=== PATIENT | female | born 1940 | race Caucasian/White ===

== ENCOUNTER 2019-06-19 10:40 | Inpatient (IN) ==
[2019-06-14 16:29] LABS: Appearance,Urine CLEAR; Bilirubin,Urine NEG (NEG); Color,Urine YELLOW; Culture Indicated,Urine NO; Glucose,Urine (UA) NEGATIVE (NEG); Ketones,Urine NEG (NEG); Leukocyte Esterase,Urine NEG /uL (NEG); Nitrate,Urine NEG (NEG); Protein,Urine NEG (NEG); Specific Gravity,Urine 1.009 (1.000-1.035); Urine Blood NEG mg/dL (<0.03); Urobilinogen,Urine NEG (NEG)
[2019-06-14 17:06] LABS: Basophils # (Auto) 0 K/mcL (0.0-0.3); Basophils % (Auto) 0.5 % (0.0-2.0); Eosinophils # (Auto) 0.3 K/mcL (0.0-0.7); Eosinophils % (Auto) 3.7 % (0.0-7.0); Granulocytes % (Auto) 64.8 % (38.0-78.0); Hemoglobin 14.4 g/dL (12.0-15.0); Lymphocytes % (Auto) 24.8 % (15.5-49.0); Mean Cell Volume 90.8 fL (80.0-100.0); Mean Corpuscular HGB Conc 32.7 g/dL (31.0-36.0); Mean Platelet Volume 7.6 fL (7.4-10.4); Monocytes # (Auto) 0.5 K/mcL (0.1-0.9); Monocytes % (Auto) 6.2 % (1.0-12.0); Platelet Count 303 K/mcL (140-440); RBC 4.84 M/mcL (4.00-5.20); Red Cell Distribution Width 13.1 % (11.5-14.5); WBC 7.9 K/mcL (4.5-11.0)
[2019-06-14 17:17] LABS: INR 0.9 (0.9-1.1); Prothrombin Time 12.1 sec (11.9-14.5)
[2019-06-14 17:18] LABS: Blood Urea Nitrogen 11 mg/dl (8-23); Carbon Dioxide 28 mmol/L (22-30); Chloride 98 mmol/L (96-108); Glomerular Filtration Rate 82; Glucose 90 mg/dL (70-105)
[~2019-06-19 10:40] MED LIST: 0.9 % SODIUM CHLORIDE 9 ML, KETOROLAC 30 MG, ROPIVACAINE HCL/PF 49.5 ML, EPINEPHrine 0.... IJ SCH; IPRATROPIUM/ALBUTEROL 3 ML AMPUL.NEB NEB PRN; PREGABALIN 75 MG CAPSULE PO SCH; SCOPOLAMINE 1 PATCH PATCH TOPICAL PRN; ceFAZolin 2 GM in DEXTROSE 5% IN WATER 50 ML IV SCH; oxyCODONE 10 MG TAB.ER.12H PO SCH
[2019-06-19] MEDS: CELECOXIB 200 MG CAPSULE PO SCH (11:09)
[2019-06-19] MEDS ORDERED: LIDOCAINE HCL/PF 100 MG/5 ML SYRINGE IV ONE (16:18)
[2019-06-19] MEDS ORDERED: DEXAMETHASONE 10 MG/ML VIAL IV ONE (16:18)
[2019-06-19] MEDS ORDERED: GLYCOPYRROLATE 0.2 MG/ML VIAL IV ONE (16:18)
[2019-06-19] MEDS ORDERED: ONDANSETRON 4 MG/2 ML VIAL IV ONE (16:18)
[2019-06-19] MEDS ORDERED: KETAMINE 100 MG/ML ML IV ONE (16:18)
[2019-06-19] MEDS ORDERED: PROPOFOL 200 MG/20 ML VIAL IV ONE (16:18)
[2019-06-19] MEDS ORDERED: MIDAZOLAM 2 MG/2 ML VIAL IV ONE (16:18)
[2019-06-19] MEDS ORDERED: ROPIVACAINE HCL/PF 30 ML VIAL IJ ONE (16:18)
[2019-06-19] MEDS ORDERED: TRANEXAMIC ACID 1,000 MG/10 ML VIAL IV ONE ×2 (16:18→17:39)
[2019-06-19] MEDS ORDERED: MAGNESIUM HYDROXIDE 30 ML ORAL.SUSP PO PRN (17:39)
[2019-06-19] MEDS ORDERED: BISACODYL 10 MG SUPP.RECT PR PRN (17:39)
[2019-06-19] MEDS ORDERED: BENZOCAINE/MENTHOL 1 LOZENGE PO PRN ×2 (17:39→17:42)
[2019-06-19] MEDS ORDERED: ONDANSETRON 4 MG ODT TABLET SL PRN (17:39)
[2019-06-19] MEDS ORDERED: FLEETS ADULT ENEMA PR PRN (17:39)
[2019-06-19] MEDS ORDERED: HYDROcodone/APAP 10/325MG TABLET PO PRN (17:39)
[2019-06-19] MEDS ORDERED: ONDANSETRON 4 MG/2 ML VIAL IV PRN ×2 (17:39→17:42)
[2019-06-19] MEDS ORDERED: POLYETHYLENE GLYCOL 3350 17 GM PACKET PO PRN (17:39)
[2019-06-19] MEDS ORDERED: METHOCARBAMOL 750 MG TABLET PO PRN (17:39)
--- NOTE | 2019-06-19 17:39 | Brief Operative Note ---
Date of procedure: 06/19/19 Pre-op diagnosis: right knee oa Post-op diagnosis: same Procedure: right total knee arthroplasty Grafts/Implants: Yes Anesthesia: spinal Complications: none Surgeon: Mal Newton Pre Press Manager: Daria Day Estimated blood loss (cc): 100 Tourniquet Time (Minutes): 47 Specimens Removed/Pathology: none sent Condition: stable Disposition: PACU
[2019-06-19] MEDS ORDERED: ACETAMINOPHEN 1,000 MG/100 ML BOTTLE IV ONE (17:42)
[2019-06-19] MEDS ORDERED: IPRATROPIUM/ALBUTEROL 3 ML AMPUL.NEB NEB PRN (17:42)
[2019-06-19] MEDS ORDERED: MEPERIDINE 25 MG/ML SYRINGE IV PRN (17:42)
[2019-06-19] MEDS ORDERED: METHOCARBAMOL 1,000 MG/10 ML VIAL IV PRN (17:42)
[2019-06-19] MEDS ORDERED: fentaNYL 100 MCG/2 ML VIAL IV PRN (17:42)
[2019-06-19] MEDS ORDERED: GENTAMICIN SULFATE 800 MG/20 ML VIAL IR ONE (17:46)
--- NOTE | 2019-06-19 18:45 | XRay Report ---
CLINICAL INFORMATION: Post-Op Total Knee COMPARISON: None. FINDINGS: Total knee prostheses is anatomically aligned. No osseous abnormality. Periarticular soft tissue swelling seen as expected IMPRESSION: Negative Interpreted and Authenticated by: Mal Walters 06/19/19
[2019-06-19] MEDS: KETOROLAC 15 MG/ML VIAL IV SCH (19:20)
[2019-06-19] MEDS: LACTATED RINGERS 1,000 ML IV SCH (19:39)
[2019-06-19] MEDS ORDERED: SENNOSIDES 1 TABLET PO SCH (21:00)
[2019-06-19] MEDS ORDERED: amLODIPine 5 MG TABLET PO SCH (21:00)
[2019-06-19] MEDS: ASPIRIN 81 MG TAB.CHEW PO SCH (21:13)
[2019-06-19] MEDS: DOCUSATE SODIUM 100 MG CAPSULE PO SCH (21:14)
[2019-06-19] MEDS: 0.9 % SODIUM CHLORIDE 10 ML SYRINGE IV SCH (21:14)
[2019-06-19] MEDS ORDERED: ceFAZolin 1 GM VIAL ONE (23:48)
[2019-06-20] MEDS: KETOROLAC 15 MG/ML VIAL IV SCH ×3 (01:55→12:21)
[2019-06-20] MEDS: ceFAZolin 1 GM VIAL IV SCH ×2 (01:55→07:57)
[2019-06-20] MEDS: LACTATED RINGERS 1,000 ML IV SCH ×2 (02:21→16:16)
[2019-06-20] MEDS: 0.9 % SODIUM CHLORIDE 10 ML SYRINGE IV SCH ×2 (05:23→12:21)
[2019-06-20 06:17] LABS: Hematocrit 37.9 % (36.0-48.0); Hemoglobin 12.7 g/dL (12.0-15.0)
--- NOTE | 2019-06-20 07:04 | Discharge Summary ---
Providers - Providers Patient information: Note initiated : 06/20/19 at 7:01 am Service Date, if different from initiated Date: [] Patient: Vika Khan 78 y/o F admitted on 06/19/19 for Right Total Knee Arthroplasty. Chief Complaint: [POD #1 s/p right TKA Patient reports minimal to no pain. Has not yet ambulated as surgery was quite late. Denies CP, SOB, numbness/tingling or calf pain.] Discharge date: 06/20/19 Hospitalization Hospital Course: Patient was brought to OR yesterday for right TKA. Surgery went on without complications. Was admitted overnight for posteroperative care and pain management. Will discharge home today and follow up in the clinic for post op care. Discharge diagnosis: knee osteoarthritis Reason for admission: post op pain management Exam - Exam Incision healing: Yes Incision draining: No Incision red: No Incision swollen: No Incision inflamed: No Clean and dry: Yes Weight bearing status: as tolerated Range of motion: full ankle and foot Ortho Discharge - TKA - Patient Instructions Diet: Regular Diet Activity: ambulate with assistive device Total Knee Protocol: For Total Knee: Start ROM SHAMAR with stationary bike or rocking chair. Work on gaining full extension of knee. Posterior dislocation precautions provided. Hip abductor strengthening and gait training instructions provided. Apply Cryocuff as instructed. Dressing Care: Other (Leave barros dressing in place until post op. It is shower proof. Pat and air dry when done. If barros dressing starts to fall off before post op appointment, there's a glue patch underneath the skin that is also shower proof. Keep that in place until post op appointment. Recommend BENEDICTO wrap daily until post op appointment for swelling control) - Follow Up Plan Follow Up Appointments: Daria Day PA-C [Physician Office Cashier] - 07/04/19 10:20 am Disposition: Home, Self-Care Prognosis: Good Rehab Potential: Good I certify that the patient requires SNF services: No Overall status at discharge: patient is progressing back to baseline - Orders For Discharge Prescriptions: Aspirin 81 mg PO BID #28 tab.chew Transmission Status: Pending to [facility] HYDROcodone/APAP 10/325MG [[place] 10-325Mg] 1 - 2 tab PO Q4HP PRN #60 tab PRN Reason: Pain Level 3-6 Prescription Printed Additional Discharge Orders: Physical Therapy at Discharge - TKA Location: None Selected Toilet Riser Discharge Order Location: None Selected Pending Studies Resuscitation Status Full Code Diet Regular Diet Start TueJun 19 1741 Amlodipine Besylate (Norvasc) 5 mg PO [facility] Last Admin: 06/19/19 21:14 Dose: 5 mg Documented by: YULIA Aspirin (Aspirin) 81 mg PO BID [facility] Last Admin: 06/19/19 21:13 Dose: 81 mg Documented by: YULIA Cefazolin Sodium (Ancef) 2 gm IV Q8H [facility] Stop: 06/20/19 08:01 Last Admin: 06/20/19 01:55 Dose: Not Given Documented by: YULIA Docusate Sodium (Colace) 100 mg PO BID [facility] Last Admin: 06/19/19 21:14 Dose: 100 mg Documented by: YULIA Lactated Ringer's (Lactated Ringers) 1,000 mls @ 125 mls/hr IV .Q8H [facility] Last Admin: 06/20/19 02:21 Dose: 125 mls/hr Documented by: Admin: 06/19/19 19:39 Dose: Not Given Documented by: YULIA Ketorolac Tromethamine (Toradol) 15 mg IV Q6 [facility] Stop: 06/21/19 12:01 Last Admin: 06/20/19 05:37 Dose: 15 mg Documented by: Admin: 06/20/19 01:55 Dose: Not Given Documented by: Admin: 06/19/19 19:20 Dose: 15 mg Documented by: YULIA Senna (Senokot) 2 tab PO [facility] Last Admin: 06/19/19 21:14 Dose: 2 tab Documented by: YULIA Sodium Chloride (Saline Flush) 10 ml IV Q8 [facility] Last Admin: 06/20/19 05:23 Dose: Not Given Documented by: Admin: 06/19/19 21:14 Dose: 10 ml Documented by: YULIA Shift Summary 06/20/19 03:20 Shift Summary by Matilda Sue Pt arrived room 106 via gurney approx 1900. Pt reported sensation returning to leg upon arrival to room. Pt treated with toradol for pain times 1 as of this writing. Pt taking PO well without nausea or concern. Pt with 20 IV to left wrist with LR at 125 mL per hour. Pt with bilateral foot pumps functioning without concern. Pt reports history of urinary incontinence during previous hospitalizations, Pt without incont, but is wearing an attends for comfort and confidence. Pt A & O times 4 and skin is without issues. incision to right knee secured with wide BENEDICTO wrap from ankle to thigh. Pt's VSS. Initialized on 06/20/19 03:20 - END OF NOTE
--- NOTE | 2019-06-20 07:08 | Operative Note ---
DATE OF OPERATION: 06/19/2019 PREOPERATIVE DIAGNOSIS: Degenerative joint disease, right knee. POSTOPERATIVE DIAGNOSIS: Degenerative joint disease, right knee. PROCEDURE: Right total knee arthroplasty. SURGEON: Diamante Newton M.D. ALARM INSTALLATION TECHNICIAN SURGEON: Daria Day PA-C. This provider's expertise and technical skill were required throughout the case. The PA assisted with preoperative coordination, intraoperative retraction, wound closure, dressing and splint application, as well as postoperative documentation and care coordination. ANESTHESIA: Spinal with LMA assist. ESTIMATED BLOOD LOSS: 150 mL COMPLICATIONS: None noted. SPECIMENS REMOVED: None. DRAINS: None. TOURNIQUET TIME: 47 minutes at 300 mmHg. IMPLANTS: DePuy CM2 bone cement 20 grams x4, DePuy Attune femoral posterior stabilized size 5 right narrow, DePuy Attune tibial insert fixed bearing posterior stabilized size 5, 8 mm AOX, DePuy Attune knee system tibial fixed bearing size 5 cemented, DePuy Attune patella medialized dome 35 mm cemented AOX. INDICATIONS: The patient has had a long-standing history of worsening pain in the knee that has failed conservative treatment. Radiographs have confirmed advanced degenerative joint disease. After a long discussion about treatment options, the patient elected to proceed with a knee arthroplasty. The risks and benefits were discussed with the patient in detail including, but not limited to, the risks of anesthesia, problems with the heart or lungs related to anesthesia, infection, compromise or injury to the nerves and blood vessels, deep venous thrombosis, pulmonary embolism, pneumonia, continued pain after surgery, worsening pain or symptoms after surgery, swelling, loss of motion, instability, leg length discrepancy, and need for repeat surgery. DESCRIPTION OF PROCEDURE: The patient was seen in the pre-anesthesia waiting room where all questions were answered and the correct side and site were identified and marked. The patient was transferred to the operating room and administered the anesthetic and given pre-operative antibiotics. A time-out was then called. The extremity was prepped and draped, exsanguinated, and the tourniquet was inflated to 300 mmHg. A midline skin incision was then made with a standard medial parapatellar arthrotomy. Debridement of the menisci, ACL, and PCL was performed followed by balancing releases in the medial lateral plane. We then established intramedullary access to both the femur and tibia in a standard fashion. The femoral guide favian was initially placed with the distal femoral guide, pinned into place, and the distal femoral cut was performed and checked with a flat plate. We then turned our attention to the tibia. The intramedullary guide was placed with the proximal tibial cutting block. The block was appropriately positioned off the affected side, varus and valgus was checked with the extra-medullary guide, and the block was pinned into place. The proximal tibial cut was performed and the tibia was prepared for the tibial implant with appropriate rotation. The tibia, femur, and posterior compartment were debrided of osteophytes, loose bodies, and meniscal fragments We then used the gap balancing technique to balance extension with the first two cuts and good balancing was obtained with a 10 millimeter gap block. We turned our attention back to the femur and used the referencing block and implant to size appropriately. Using the gap balancing technique for the flexion space we set our rotation of the femur off the tibial cut. Anesthesia gave the patient 1 gram of Tranexamic Acid via an intravenous route. We placed the 4 in 1 cutting block and made anterior, posterior, and chamfer cuts. Box plasty cuts were then made in a standard fashion for the posterior stabilized prosthesis. We then completed osteophyte release and posterior capsule release from the posterior compartment. Trials were placed and we chose the polyethylene insert thickness that provided the best stability in all planes. With the trials in place, we did a measured resection for a resurfacing patella. We sized the patella and placed the patella trial and performed a lateral facetectomy with the saw and rongeur. Good tracking was obtained. We removed all trials, irrigated and dried all cut surfaces. We cemented the components into place including tibia, femur and patella. We placed a trial liner and held the knee in full extension with the patella compressed while the cement cured. We then removed all excess cement and placed the final polyethylene tibiofemoral component. Irrigation with 3 liters of antibiotic saline was then performed using jet-lavage. We let the tourniquet down and coagulated bleeding vessels. We injected a 100 cubic centimeter volume including Ropivacaine 49.25 cubic centimeters at 5 milligrams per cubic centimeter, Ketorolac 30 milligrams, and Epinephrine 0.5 milligrams into 100 cubic centimeters volume of normal saline. We closed the retinaculum with #2 Stratafix and 0 Vicryl. We closed the subcutaneous tissue and skin in layers out to Dermabond on the skin. A sterile pressure dressing was applied. All needle and sponge counts were correct. The patient was transferred to the recovery room in stable condition. JRadha:froylan Job ID: [id number] Doc ID: [id number] Diamante Newton MD
[2019-06-20] MEDS ORDERED: FEXOFENADINE 180 MG TABLET PO SCH (09:00)
[2019-06-20] MEDS ORDERED: amLODIPine 5 MG TABLET PO SCH (09:00)
[2019-06-20] MEDS: DOCUSATE SODIUM 100 MG CAPSULE PO SCH (09:01)
[2019-06-20] MEDS: ASPIRIN 81 MG TAB.CHEW PO SCH (09:02)
[2019-06-20] MEDS ORDERED: ACETAMINOPHEN 325 MG TABLET PO PRN (10:54)
== END 2019-06-20 15:05 | disposition home or self-care (01) | DRG 470 ==
LOC: MEDSUR 10:40
PROVIDERS: ADMIT Orthopaedic Surgery Sports Medicine; ATTEND Orthopaedic Surgery Sports Medicine